=== PATIENT | male | born 1960 | race African-American/Black ===

== ENCOUNTER 2018-11-23 22:09 | Emergency (ER) | payer MEDICAID ==
[~2018-11-23] VITALS: Ht 185.4 cm; Wt 98.0 kg
[2018-11-24] MEDS ORDERED: LIDOCAINE 1% (LOCAL ANESTH.) PF 5ml SDV ID ONE (01:30)
[2018-11-24] MEDS ORDERED: LIDOCAINE 2% (LOCAL ANESTH.) PF 5ml SDV ONE (02:06)
[2018-11-24] MEDS ORDERED: cefTRIAXone 1GM/50ML D5W 50 ML IV ONE (02:54)
[2018-11-24] MEDS ORDERED: cefTRIAXone W LIDOCAINE 1 GM IM IM ONE (03:00)
[2018-11-24] MEDS ORDERED: BACITRACIN INJ 50000 UNIT VIAL TOP ONE (03:00)
[2018-11-24] MEDS ORDERED: NEOMYCIN-BACITRACIN-POLYM UNITDOSE PKG TOP OINT TOP ONE ×2 (03:23)
[2018-11-24] MEDS ORDERED: NEOMYCIN-BACITRACIN-POLYM 15GM TOP OINT TOP SCH ×2 (03:30→10:00)
[2018-11-24 03:34] VITALS: BP 136/72
== END 2018-11-24 00:37 | disposition home or self-care (01) ==
LOC: ER 22:09
DX: S81.011A Laceration without foreign body, right knee, initial encounter (principal); J45.909 Unspecified asthma, uncomplicated; K21.9 Gastro-esophageal reflux disease without esophagitis; I10 Essential (primary) hypertension; Z91.018 Allergy to other foods; W26.0XXA Contact with knife, initial encounter; Y93.89 Activity, other specified; Y92.89 Other specified places as the place of occurrence of the external cause; Y99.8 Other external cause status
CPT/HCPCS: 12002; 73562; 96372; 99283; J0696; J2001

== ENCOUNTER 2019-11-17 18:15 | Emergency (ER) | payer MEDICAID ==
[~2019-11-17] VITALS: Ht 185.4 cm; Wt 105.2 kg
[2019-11-17 20:04] VITALS: BP 133/88
[2019-11-17] MEDS ORDERED: traMADol HCL 50 MG TAB PO ONE (20:15)
[2019-11-17] MEDS ORDERED: traMADol HCL 50 MG TAB ONE (20:18)
== END 2019-11-17 20:30 | disposition home or self-care (01) ==
LOC: ER 18:15
DX: S82.62XA Displaced fracture of lateral malleolus of left fibula, initial encounter for closed fracture (principal); M62.838 Other muscle spasm; M54.5 Low back pain; J45.909 Unspecified asthma, uncomplicated; K21.9 Gastro-esophageal reflux disease without esophagitis; I10 Essential (primary) hypertension; F17.210 Nicotine dependence, cigarettes, uncomplicated; F10.20 Alcohol dependence, uncomplicated; Z91.018 Allergy to other foods; Y90.9 Presence of alcohol in blood, level not specified; V29.9XXA Motorcycle rider (driver) (passenger) injured in unspecified traffic accident, initial encounter; Y93.89 Activity, other specified; Y92.89 Other specified places as the place of occurrence of the external cause; Y99.8 Other external cause status
CPT/HCPCS: 29125; 29515; 72100; 73610

== ENCOUNTER 2022-09-27 03:43 | Emergency (ER) | payer MEDICAID ==
[~2022-09-27] VITALS: Ht 185.4 cm; Wt 248.0 kg
[2022-09-27 03:43] VITALS: BP 167/92; PULSE 87; RESP 18; O2SAT 94
== END 2022-09-27 06:47 | disposition left against medical advice (07) ==
LOC: ER 03:43
DX: H57.12 Ocular pain, left eye (principal); Z53.21 Procedure and treatment not carried out due to patient leaving prior to being seen by health care provider